=== PATIENT | female | born 2005 | race Caucasian/White ===

== ENCOUNTER 2024-05-20 00:53 | Inpatient (IN) | payer BC ==
--- OUTSIDE RECORDS SUMMARY | 2024-05-20 00:57 | XMS REPORT | Continuity of Care Document ---
Author Name Unknown Address [address] [facility] [address] [place] [address] [facility] Address [address] [facility] [address] [place] [address] Care Team Providers Care Beater Head Name Role Phone NOHEMY RUBY Primary Care Physician Unavailab le RADIOLOGY Attending Clinician Unavailable Radiology Attending Clinician Unavailable NOHEMY RUBY Admitting Clinician Unavailable Payers Payer Name Policy Type Policy Number Effective Date Expirati on Date Source [facility] [id number] 2017 00:00:00 Allergies, Adverse Reactions, Alerts Allergy Name Allergy Type Status Severity Reaction(s) Onset Date Inactive Date Treating Clinician Comments Source NO KNOWN ALLERGIE S Drug Class Active [facility] Social History Social Habit Start Date Stop Date Quantity Comments Source Exposure to SARS-CoV-2 (event) 2021-12-30 00:00:00 2022-01-09 12:12:00 Not sure [facility] Sex Assigned At 2003 00:00:00 2005 00:00:00 [facility] Smoking Status Start Date Stop Date Source Tobacco smoking consumption unknown [facility] Procedures Procedure Date / Time Performed Performing Clinician Source [facility] PATIENT FINANCIAL POLICY 2022-01-17 21:34:25 Doctor Unassigned, [place] [facility] NO SHOW OR MISSED APPOINTMENT POLICY ACKNOWLEDGEMENT 2022-01-17 21:33:56 Doctor Unassigned, [place] [facility] NOTICE OF PRIVACY PRACTICES 2022-01-17 21:33:34 Doctor Unassigned, [place] [facility] CONSENT/REFUSAL FOR DIAGNOSIS AND TREATMENT 2022-01-17 21:33:13 Doctor Unassigned, [place] [facility] ASSIGNMENT OF BENEFITS 2022-01-17 21:32:52 Docto r Unassigned, [place] [facility] Encounters Start Date/Time End Date/Time Encounter Type Admission Type Attending [facility] Facility Care Department Encounter ID Source 2022-01-17 15:35:00 2022-01-17 23:59:00 Outpatient R RADIOLOGY [facility] [id number] [facility] 2022-01-17 15:30:00 2022-01-17 23:59:00 Hospital Encounter Radiology [facility] [id number] [facility]
[2024-05-20 01:12] VITALS: BMI 48.6
[2024-05-20] MEDS: NA CHLORIDE 0.9% 1,000 ML IV SCH (02:01)
--- NOTE | 2024-05-20 02:08 | P.HP ---
Certification for Inpatient Patient admitted to: Inpatient With expected LOS: >2 Midnights Practitioner: I am a practitioner with admitting privileges, knowledge of patient current condition, hospital course, and medical plan of care. Services: Services provided to patient in accordance with Admission requirements found in Title 42 Section 412.3 of the Code of Federal Regulations Patient History Date of Service: 05/20/24 Reason for admission: Abdominal pain History of Present Illness: 18-year-old female presents from outside ER with abdominal pain. Reports started 1 day ago. Described as mainly epigastric region. She also reports that she had a low-grade fever of 100.4. In the outside ER she had abnormal CT scan concerning for pancreatitis as well as an elevated amylase. Lipase was not done due to availability. She had a negative urine test. She also reported some nausea. Currently she is feeling better. She denies history of heavy alcohol use. Outside hospital ER did not show gallstones. She denies previous episodes of pancreatitis that was diagnosed but states earlier in the month she did have abdominal pain but not as severe. She denies taking any medications. Or having any recent trauma Allergies No Known Allergies Allergy (Verified 05/20/24 01:15) - Past Medical/Surgical History Diabetic: No -: HTN -: hypothyroid - Social History Smoking Status: Never smoker Place of Residence: Home Review of Systems 10-point ROS is otherwise unremarkable Physical Examination - Vital Signs Temperature: 99.2 F Blood Pressure: 164/84 Pulse: 116 Respirations: 16 Pulse Ox (%): 100 - Physical Exam General: Alert, Oriented x3 HEENT: Atraumatic, Normocephalic Respiratory: Clear to auscultation bilaterally, Normal air movement Cardiovascular: Normal pulses, Regular rate/rhythm Gastrointestinal: Soft and benign, Tenderness Musculoskeletal: No swelling Integumentary: No rashes, No breakdown Assessment and Plan - Problems (Diagnosis) (1) Pancreatitis Current Visit: Yes Status: Acute - Plan Acute pancreatitis Abdominal pain Etiology unclear. Will check a lipid profile. Outside hospital CT scan did not show gallstones. She denies any recent trauma. She is not on medications. Will keep n.p.o. with ice chips IV fluids As needed morphine Antibiotic not indicated Advance diet in the next 24 hours Lipase ordered SCDs Full code - Advance Directives Does patient have a Living Will: No Does patient have a Durable POA for Healthcare: No
[2024-05-20] MEDS: MORPHINE 2 MG/ML SYR IV PRN (02:15)
--- NOTE | 2024-05-20 14:08 | RAD REPORT ---
EXAMINATION: US Abdomen Exam Limited CLINICAL HISTORY: cholelithiasis COMPARISON: None. TECHNIQUE: Limited upper abdominal grayscale and color flow sonographic images. FINDINGS: Gallbladder: Mild floating sludge. No echogenic calculi. No wall thickening or pericholecystic fluid. Bile ducts: No intrahepatic or extrahepatic biliary dilatation. Common bile duct measures 6 mm. Liver: Visualized portions of the liver demonstrate diffuse parenchymal echogenicity suggesting steat osis. Fluid: No ascites. IMPRESSION: Mild gallbladder sludge, without other significant findings. Common bile duct at the upper limit of n ormal in caliber. Hepatic parenchymal hyperechogenicity suggesting steatosis.
[2024-05-21 07:55] LABS: Absolute Basophils 0.1 K/uL (0-0.5); Absolute Eosinophils 0.3 K/uL (0-0.5); Absolute Lymphocytes (CBC) 2.9 K/uL (0.7-4.9); Absolute Monocytes 0.9 K/uL (0.1-1.3); Absolute Neutrophil 6.4 K/uL (1.8-8.0); Basophils % 0.5 % (0-1.3); Eosinophils % 2.5 % (0-4.4); Hemoglobin 14.5 g/dL (12.0-15.0); Lymphocytes % 27.3 % (15.3-44.8); MCH 31.2 pg (27.0-35.0); MCHC 35.4 g/dL (32.0-36.0); MCV 88.3 fL (80-100); MPV 8.6 fL (7.6-11.3); Monocytes % 8.4 % (3.3-12.3); Neutrophils % 61.3 % (41.7-73.7); Nucleated Red Blood Cells % 0.1 % (0-0); Platelets 203 thou/uL (152-406); RBC Red Blood Cell Count 4.64 M/uL (3.86-4.86)
[2024-05-21 08:09] LABS: PT Prothrombin Time 15.5 SECONDS (10-13.0); PTT, Activated Partial Thromb 32.3 SECONDS (27.2-37.4); Protime INR 1.38
[2024-05-21 08:34] LABS: Albumin 3.1 g/dL (3.4-5.0); Albumin/Globulin Ratio 0.8 (1.1-1.8); Anion Gap 10.8 mEq/L (5.0-15.0); Bilirubin Total 2.6 mg/dL (0.2-1.0); Globulin 3.7 g/dL (2.3-3.5); Magnesium 1.8 mg/dL (1.6-2.4); Potassium 3.8 mEq/L (3.5-5.1); Protein, Total 6.8 g/dL (6.4-8.2)
[2024-05-21 08:37] LABS: Thyroid Stimulating Hormone 17.1 uIU/mL (0.358-3.740)
--- NOTE | 2024-05-21 09:09 | RAD REPORT ---
EXAMINATION: Abdomen Pelvis W Contrast CLINICAL INDICATION: Female, 18 years old.pancreatitis TECHNIQUE: CT abdomen and pelvis was performed, after the administration of IV contrast, as per [facility] protocol. Axial, sagittal and coronal reconstructions were obtained. One or more of the following dose reduction techniques were used: Automated exposure control, adjustment of the mA and/o r kV according to patient size, and/or iterative reconstruction. Unless otherwise specified, incidental findings do not require dedicated imaging follow-up. [id number]. COMPARISON: No prior exam. FINDINGS: LOWER CHEST: Trace pleural effusions and likely dependent atelectasis.No significant pericardial effu heydi. UPPER GI: No significant abnormality. LIVER: Hepatic steatosis, but otherwise unremarkable. GALLBLADDER/BILE DUCTS: No biliary ductal dilatation.? PANCREAS: Stranding is present at the body and tail the pancreas. SPLEEN: Unremarkable. ADRENALS: No adrenal masses. KIDNEYS AND URETERS: No hydronephrosis.No suspicious renal mass.No renal calculi. ABDOMINAL AORTA AND OTHER VESSELS: Normal caliber aorta and IVC. PERITONEUM: Nonspecific free fluid. LYMPH NODES: No pathologic lymphadenopathy. ABDOMINAL WALL: Unremarkable SMALL BOWEL/COLON: Small bowel has normal course and caliber. No colonic wall thickening or pericolon ic inflammatory changes.Normal appendix. URINARY BLADDER: Underdistended but grossly unremarkable. REPRODUCTIVE ORGANS: Prominent ovaries bilaterally, right greater than left. This is nonspecific. MUSCULOSKELETAL: No acute or suspicious osseous abnormality. ADDITIONAL FINDINGS: None. IMPRESSION: Acute pancreatitis. No complicating features. Hepatic steatosis.
[2024-05-21] MEDS: ONDANSETRON 4 MG/2 ML VIAL IV PRN (16:19)
[2024-05-21 22:46] VITALS: O2SAT 100
[2024-05-22] MEDS: MORPHINE 2 MG/ML SYR IV ONE (06:23)
[2024-05-22 07:15] LABS: Absolute Eosinophils 0.3 K/uL (0-0.5); Absolute Lymphocytes (CBC) 2.1 K/uL (0.7-4.9); Absolute Monocytes 0.6 K/uL (0.1-1.3); Basophils % 0.5 % (0-1.3); Eosinophils % 3.4 % (0-4.4); Hematocrit 40.4 % (36.0-45.0); Hemoglobin 13.8 g/dL (12.0-15.0); Lymphocytes % 23.5 % (15.3-44.8); MCH 30.3 pg (27.0-35.0); MCV 89.1 fL (80-100); MPV 8.4 fL (7.6-11.3); Monocytes % 6.5 % (3.3-12.3); Neutrophils % 66.1 % (41.7-73.7); Nucleated Red Blood Cells % 0.1 % (0-0); Platelets 234 thou/uL (152-406); RBC Red Blood Cell Count 4.54 M/uL (3.86-4.86); Red Cell Distribution Width 12.9 % (12.1-15.2)
[2024-05-22 07:26] LABS: Anion Gap 9.9 mEq/L (5.0-15.0); Potassium 3.9 mEq/L (3.5-5.1)
[2024-05-22 19:44] LABS: Albumin 3.1 g/dL (3.4-5.0); Albumin/Globulin Ratio 0.8 (1.1-1.8); Bilirubin Direct 0.2 mg/dL (0-0.2); Bilirubin Indirect, Calculated 1.5 mg/dL (0.2-0.8); Bilirubin Total 1.7 mg/dL (0.2-1.0); Globulin 3.9 g/dL (2.3-3.5)
[2024-05-22 20:24] VITALS: BP 149/75; TEMP 98
--- NOTE | 2024-05-29 13:45 | P.PN ---
Date of Service: 05/21/24 Subjective patient continues to do well. Patient denies any new complaints. Patient's pain is better controlled. Start clear liquid diet. Physical Examination - Vital Signs reviewed - Physical Exam General: Alert, Oriented x3 Respiratory: Clear to auscultation bilaterally, Normal air movement Cardiovascular: Normal pulses, Regular rate/rhythm Gastrointestinal: Soft and benign, Tenderness Musculoskeletal: No swelling Integumentary: No rashes, No breakdown Assessment and Plan - Problems (Diagnosis) (1) Pancreatitis Current Visit: Yes Status: Acute - Plan Acute pancreatitis Abdominal pain Etiology unclear. Will check a lipid profile. Outside hospital CT scan did not show gallstones. She denies any recent trauma. She is not on medications. Will keep n.p.o. with ice chips IV fluids As needed morphine Antibiotic not indicated Advance diet in the next 24 hours Lipase ordered SCDs Full code - Advance Directives Does patient have a Living Will: No Does patient have a Durable POA for Healthcare: No
--- NOTE | 2024-05-29 13:46 | P.DS ---
Discharge Date: 05/22/24 Disposition: ROUTINE DISCHARGE Discharge Condition: GOOD Reason for Admission: Abdominal pain Brief History of Present Illness: 18-year-old female presents from outside ER with abdominal pain. Reports started 1 day ago. Described as mainly epigastric region. She also reports that she had a low-grade fever of 100.4. In the outside ER she had abnormal CT scan concerning for pancreatitis as well as an elevated amylase. Lipase was not done due to availability. She had a negative urine test. She also reported some nausea. Currently she is feeling better. She denies history of heavy alcohol use. Outside hospital ER did not show gallstones. She denies previous episodes of pancreatitis that was diagnosed but states earlier in the month she did have abdominal pain but not as severe. She denies taking any medications. Or having any recent trauma Hospital Course: Patient is clinically doing well. Patient is tolerating diet. Patient's pain is better controlled. At this time, patient is clinically stable for discharge with outpatient follow-up. Vital Signs/Physical Exam: Temp Pulse Resp BP Pulse Ox 98.0 F 95 H 18 149/75 H 99 05/22/24 20:00 05/22/24 20:00 05/22/24 20:00 05/22/24 20:00 05/22/24 20:00 General: Alert, In no apparent distress, Oriented x3 Laboratory Data at Discharge: WBC 9.10 thou/uL (4.3-10.9) 05/22/24 07:04 Hgb 13.8 g/dL (12.0-15.0) 05/22/24 07:04 Hct 40.4 % (36.0-45.0) 05/22/24 07:04 Plt Count 234 thou/uL (152-406) 05/22/24 07:04 PT 15.5 SECONDS (10-13.0) H 05/21/24 07:41 INR 1.38 05/21/24 07:41 APTT 32.3 SECONDS (27.2-37.4) 05/21/24 07:41 Sodium 136 mEq/L (136-145) 05/22/24 07:04 Potassium 3.9 mEq/L (3.5-5.1) 05/22/24 07:04 BUN 6 mg/dL (7-18) L 05/22/24 07:04 Creatinine 0.59 mg/dL (0.55-1.02) 05/22/24 07:04 Glucose 86 mg/dL (74-106) 05/22/24 07:04 Magnesium 1.8 mg/dL (1.6-2.4) 05/21/24 07:41 Total Bilirubin 1.7 mg/dL (0.2-1.0) H 05/22/24 19:05 AST 38 U/L (15-37) H 05/22/24 19:05 ALT 44 U/L (13-56) 05/22/24 19:05 Alkaline Phosphatase 54 U/L (45-117) 05/22/24 19:05 Triglycerides 59 mg/dL (<150) 05/20/24 06:40 Cholesterol 108 mg/dL (<200) 05/20/24 06:40 HDL Cholesterol 44 mg/dL (40-60) 05/20/24 06:40 Cholesterol/HDL Ratio 2.45 05/20/24 06:40 Lipase 33 U/L (13-75) 05/22/24 07:04 Home Medications: Hydrocodone 10/APAP 325 [Tell 10/325] 1 tab PO Q6H PRN #20 tab 05/22/24 Ondansetron [Zofran] 4 mg PO Q6H PRN #30 tab 05/22/24 New Medications: Hydrocodone 10/APAP 325 [Tell 10/325] 1 tab PO Q6H PRN #20 tab PRN Reason: Pain Ondansetron [Zofran] 4 mg PO Q6H PRN #30 tab PRN Reason: Nausea / Vomiting Physician Discharge Instructions: -Follow-up with PCP in 1 to 2 weeks -Follow-up with GI after discharge -Follow-up with General Surgery after discharge -Please call Dr. Allen at [phone] if any questions regarding hospital stay -Please call nursing station at [phone] if any nursing or medication questions -Return to the emergency room if symptoms worsen Diet: Low Fat Activity: Fall precautions Followup: Alberto Knight MD [ACTIVE - CAN ADMIT] - Leobardo Barron MD [ACTIVE - CAN ADMIT] - Suman Lang FNP [Primary Care Provider] - 1-2 Weeks Time spent managing pt's care (in minutes): 35
== END 2024-05-22 21:00 | disposition home or self-care (01) | DRG 440 ==
LOC: OBSVTOIN 00:53 → 4TH 00:53
PROVIDERS: ADMIT Internal Medicine; ATTEND Hospitalist
DX: K85.90 Acute pancreatitis without necrosis or infection, unspecified (principal); E03.9 Hypothyroidism, unspecified; I10 Essential (primary) hypertension
CPT/HCPCS: 36415; 74177; 76705; 80048; 80053; 80061; 80076; 82607; 83690; 83735; 84439; 84443; 85025; 85610; 85730; J2270; J2405; J7030; Q9967